=== PATIENT | male | born 1980 | race Caucasian/White ===

== ENCOUNTER 2016-08-02 04:38 | Emergency (ER) | payer SELFPAY ==
--- NOTE | 2016-08-02 06:12 | ED ORDER SUMMARY ---
..... Patient: OLGA MALDONADO OrderSheet [facility] VisitID: [id number] [place] [address] 36y, M Registration Date/Time: 08/02/2016 ORDER SHEET Weight: 104.3 kg (stated) Allergies: No Known Drug Allergy GENERAL ORDERS: CBC w Diff Urgent (04:44 08/02/2016 PHarchinson DO) (Ack 4:46 [facility] Paralegal) (5:02 JQuivey R.N.) CMP Urgent (04:44 [facility]/02/2016 [facility] (Ack 4:46 [facility] Paralegal) (5:02 JQuivey R.N.) UA-Culture if indicated Urgent (04:44 08/02/2016 [facility] (Ack 4:46 [facility] Paralegal) (5:02 JQuivey R.N.) Amylase Urgent (04:44 08/02/2016 [facility] (Ack 4:46 [facility] Lit[facility] Paralegal) (5:02 JQuivey R.N.) Lipase Urgent (04:44 08/02/2016 PHarchinson DO) (Ack 4:46 [facility] Paralegal) (5:02 JQuivey R.N.) PT with INR Urgent (04:44 08/02/2016 [facility] (Ack 4:46 [facility] Paralegal) (5:02 JQuivey R.N.) NPO (04:44 08/02/2016 [facility] (Ack 4:46 [facility] Paralegal) (5:02 JQuivey R.N.) CT Abd/Pel w Cont (No) (N/A) Urgent (04:56 08/02/2016 [facility]) (Ack 4:57 [facility] Paralegal) (5:16 RFay) Urine Drug Screen Urgent (04:58 08/02/2016 [facility]) (Ack 5:09 [facility] Paralegal) (5:10 [facility] Lit[facility] Paralegal) MEDICATION ORDERS: IV FLUIDS: IV NS : initial bolus 1000 mL (1000 mL/hr), then 250 mL/hr for X4 (NOW) (04:44 08/02/2016 [facility]) (Ack 4:49 RCollier R.N.) (4:56 RCollier R.N.) Zofran IV 4 mg (NOW) (04:44 08/02/2016 [facility]) (Ack 4:49 RCollier R.N.) (4:57 RCollier R.N.) Dilaudid IV 1 mg (NOW) (04:56 08/02/2016 [facility]) (Ack 4:57 RCollier R.N.) (5:04 RCollier R.N.) Protonix IVP 40mg 40 mg (Mix in NS 10ml over 2min) (04:56 08/02/2016 [facility]) (Ack 4:57 RCollier R.N.) (5:05 RCollier R.N.) ORDER SHEET NOTES: [Electronically signed by Rdaha Barillas R.N. (06:26 08/02/2016)] [Electronically signed by Korey White DO (06:27 08/02/2016)] [Electronically locked/signed by Radha Barillas R.N. (06:08/02/2016)]
--- NOTE | 2016-08-02 06:12 | ED NURSING NOTES ---
Clinical Report - Nurses [facility] [address] [place] [address] 08/02/2016 4:41 Patient: OLGA MALDONADO TRIAGE Triage time 04:44. Acuity: LEVEL 4. Chief Complaint: (burning at base of rib cage and in belly button). --04:48 Radha Barillas R.N. 04:44 08/02/16. BP: 135/89. HR: 79. RR: 15. O2 saturation: 96% on room air. Temp: 98.4 F (oral). Fox-Hannah pain scale: 4/10. --04:48 Radha Barillas R.N. Weight: 104.3 kg stated. Height/Length: 73 inches Per Patient. BMI: 30.3. --04:47 Radha Barillas R.N. Medications None. --04:47 Radha Barillas R.N. Allergies No Known Drug Allergy. --04:47 Radha Barillas R.N. History Arrived by private vehicle. Historian: patient. Primary physician (none). Onset. (about one month ago). 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 PAST MEDICAL HX: Immunizations not up to date. SOCIAL HX: Heavy tobacco smoker (cigarette)- less than 1 pack per day. Regular alcohol use. History of occasional drug use: marijuana. --04:48 Radha Barillas R.N. PROBLEMS: no known problems. ADDITIONAL SURGERIES: no known surgeries. Interventions ID band on patient. To treatment room. --04:48 Radha Barillas R.N. PHYSICAL ASSESSMENT Ambulatory to room. Patient gowned. GENERAL / NEURO / PSYCH: Alert. Oriented X 4. Appears in no acute distress. HEENT: Mucous membranes are pink. RESPIRATORY: Respirations not labored. CVS: Capillary refill less than 2 seconds. SKIN: Skin is warm and dry. --04:48 Radha Barillas R.N. NURSING PROGRESS NOTES Head of bed elevated. Two patient identifiers checked. Call light placed in reach. Side rails up x 1. Bed placed in lowest position. Brakes of bed on. --04:49 Radha Barillas R.N. Patient ready for evaluation- chart flagged. --04:49 Radha Barillas R.N. 04:54 08/02/2016 Site #1 started via IV in the right forearm with an 20g angiocath, with aseptic technique and good blood return; one attempt. Blood drawn: rainbow set. Labeled in the presence of the patient and sent to the lab (started by David Escobar RN). --04:56 Radha Barillas R.N. 04:54 Patient informed of his NPO status. --04:58 David Frazier R.N. 05:01 08/02/2016 Dilaudid (HYDROmorphone HCl PF) IVP 1 mg given over 1 minute(s) via site #1. Allergies verified, confirmed 5 rights and sedative warning given to the patient. IV patency established. IV site checked: no pain, redness, or swelling. IV flushed thoroughly pre- and post-medication administration. IVP given by RN. --05:04 Radha Barillas R.N. 05:02 08/02/2016 PROTONIX (Pantoprazole Sodium) IVP 40 mg given over 2 minute(s) via site #1. Allergies verified and confirmed 5 rights. IV patency established. IV site checked: no pain, redness, or swelling. IV flushed thoroughly pre- and post-medication administration. IVP given by RN. --05:05 Radha Barillas R.N. Patient ID band checked for patient name and birthdate: patient confirmed urine collected with return of yellow-colored clear urine; sample sent to lab. Specimen labeled in the presence of the patient. --05:05 Radha Barillas R.N. 06:11 08/02/16. BP: 122/79. HR: 75. RR: 15. O2 saturation: 95% on room air. Fox-Hannah pain scale: 2/10. --06:12 Radha Barillas R.N. Patient and family informed about plan of care. --06:12 Radha Barillas R.N. DISPOSITION / DISCHARGE 04:54 08/02/2016 Started bag #1 1000 mL IV Fluids IV NS (Saline); at 1000 mL/hr via site #1 via IV pump. Allergies verified and confirmed 5 rights. IV patency established. IV site checked: no pain, redness, or swelling. IV flushed thoroughly pre- and post-medication administration. --04:56 Radha Barillas R.N. 04:56 08/02/2016 Zofran (Ondansetron HCl) IVP 4 mg given over 30 second(s) via site #1. Allergies verified and confirmed 5 rights. IV patency established. IV site checked: no pain, redness, or swelling. IV flushed thoroughly pre- and post-medication administration. IVP given by RN. --04:57 Radha Barillas R.N. 06:11 08/02/16. BP: 122/79. HR: 75. RR: 15. O2 saturation: 95% on room air. Fox-Hannah pain scale: 2/10. --06:24 Radha Barillas R.N. Condition at departure: improved and stable. No learning barriers present. Discharge instructions provided and reviewed with the patient. Reviewed medication(s) side effects, precautions, dosing and course information. Prescription(s) given to the patient. Patient verbalized understanding. Written instructions provided in Amharic. The patient was discharged home and accompanied by mems process engineer. He left the Emergency Department ambulatory and via private vehicle. Pen And Pencil Repairer driving. --06:24 Radha Barillas R.N. 06:25 08/02/2016 Site #1 removed upon discharge. Catheter intact. Manual pressure and bandage applied. --06:25 Radha Barillas R.N. 06:25 08/02/2016 IV Fluids IV NS Discontinued: bag #1 completed. Total amount infused: 1000 mL. IV patency established. IV site checked: no pain, redness, or swelling. IV flushed thoroughly. --06:25 Radha Barillas R.N. Locked/Released at 08/02/2016 6:26 by Radha Barillas R.N.
--- NOTE | 2016-08-02 06:12 | ED CLINICAL REPORT ---
Clinical Report - Physicians/Mid Levels [facility] [address] [place] [address] 08/02/2016 4:41 Patient: OLGA MALDONADO Time Seen: 04:43. Arrived- By private vehicle. Historian- patient. HISTORY OF PRESENT ILLNESS Chief Complaint: ABDOMINAL PAIN. This started today about 1 month ago, worse tonight and is still present. It was gradual in onset and has been waxing/waning. It is described as "pain" and burning. No radiation. It is described as generalized in location and located in the periumbilical area and in the left upper quadrant and the left flank. At its maximum, severity described as moderate. When seen in the E.D., severity described as moderate. Modifying factors- worsened by movement. Relieved by rest. No loss of appetite, vomiting or diarrhea. Similar symptoms previously: Recent medical care: Not recently seen/assessed. REVIEW OF SYSTEMS The patient has had constipation and bloody stools. No hematemesis, difficulty with urination, pain with urination, urinary frequency or fever. No headache, sore throat, chest pain, difficulty breathing or cough. No back pain. All systems otherwise negative, except as recorded above. PAST HISTORY See nurses notes. Abscess with I&D. No history of gallstones, bowel obstruction, hypertension, hyperlipidemia or diabetes mellitus. Has not had urinary calculi. Problems: no known problems. Surgeries: No history of previous surgery. Additional Surgeries: no known surgeries. Medications: None. Allergies: No Known Drug Allergy. SOCIAL HISTORY Smoker- current status unknown. Regular alcohol use. History of drug use: marijuana. ADDITIONAL NOTES The nursing notes have been reviewed. PHYSICAL EXAM Vital Signs: 08/02/2016 04:44 BP: 135/89. HR: 79. RR: 15. O2 saturation: 96%. Temp: 98.4 F. Fox-Hannah pain scale: 4/10. Appearance: Alert. Oriented X3. Anxious. Patient in mild distress. Eyes: Eyes normal inspection. No scleral icterus or pale conjunctivae. ENT: Pharynx normal. No pharyngeal erythema or tonsillar exudate. The mucous membranes are not dry. Neck: Normal inspection. Neck supple. CVS: Normal heart rate and rhythm. Heart sounds normal. Pulses normal. Respiratory: No respiratory distress. Breath sounds normal. Abdomen: Soft. Mild tenderness in the upper abdomen, epigastric area, periumbilical area and left side of the abdomen. No rebound tenderness or guarding. (Small, easily reducible umbilical hernia). Back: Normal inspection. Skin: Skin warm and dry. Normal skin color. No rash. Normal skin turgor. (subcutaneous mass c/w lipoma left anterolateral chest wall). Extremities: Extremities exhibit normal ROM. No lower extremity edema. Neuro: Oriented X 3. No motor deficit. LABS, X-RAYS, AND EKG Abdominal CT: Mild hepatomegally / fatty infiltration. Normal appendix. No acute intra-abdominal / intrapelvic process is identified. Study type: abdomen and pelvis. Abdominal CT performed with IV contrast. The study was independently viewed by me, interpreted by the radiologist and discussed with the radiologist. Laboratory Tests: UA-Culture if indicated: (GUIDO: 08/02/2016 04:52) ( [facility] 05[facility]07) Final results Test Result Flag Units (Reference) URINE COLOR YELLOW URINE APPEARANCE CLEAR URINE GLUCOSE NEGATIVE (NEGATIVE) URINE BILIRUBIN NEGATIVE (NEGATIVE) URINE KETONE NEGATIVE (NEGATIVE) URINE SPECIFIC GRAVITY >= 1.030 (1.010-1.030) URINE PH 5.5 (5.0-8.0) URINE PROTEIN NEGATIVE (NEGATIVE) URINE UROBILINOGEN 0.2 EU/dL (0.2-1.0) URINE NITRITE NEGATIVE (NEGATIVE) URINE BLOOD NEGATIVE (NEGATIVE) URINE LEUK ESTERASE NEGATIVE (NEGATIVE) URINE RBC 0-1 rbc/hpf (0-1) URINE WBC 0-1 wbc/hpf (0-1) URINE EPITHELIAL CELLS 0-1 EPI/hpf (0-5) URINE BACTERIA NONE SEEN (NONE SEEN) URINE COMMENT CULT NOT INDICATED URINE CULTURES ARE SET-UP BASED ON THE FOLLOWING CRITERIA:POSITIVE NITRITEPOSITIVE LEUKOCYTE ESTERASEGREATER THAN 10 WHITE BLOOD CELLSMODERATE (2+) OR GREATER BACTERIA CBC w Diff: (GUIDO: 08/02/2016 04:52) ( [facility] 08/02/2016 05:05) Final results Test Result Flag Units (Reference) WHITE BLOOD COUNT 8.6 K/uL (4.5-11.5) RED BLOOD COUNT 4.99 M/uL (4.50-5.90) HEMOGLOBIN 15.6 gm/dL (13.5-17.5) HEMATOCRIT 46.4 % (41.0-53.0) MEAN CELL VOLUME 93 fL (80-100) MEAN CORPUSCULAR HGB 31 pg (26-34) MEAN CORPUSCULAR HGB CONC 34 g/dL (31-37) RED CELL DISTRIBUTION WIDTH 13.3 % (11.6-14.8) PLATELET COUNT 201 K/uL (150-400) NEUTROPHIL % 46.2 L % (50-75) LYMPH % 41.2 H % (25-40) MONO % 8.1 % (3-14) EOSINOPHIL % 4.0 % (0-4) BASOPHIL % 0.5 % (0-2) PT with INR: (GUIDO: 08/02/2016 04:52) ( [facility]sg[facility]cv[facility] 08/02/2016 05:10) Final results Test Result Flag Units (Reference) INR 0.9 (0.8-1.2) Low Intensity Therapy: INR 1.5-2.0 PT range 18.5-23.1Mod.Intensity Therapy: INR 2.0-3.0 PT range 23.1-31.5High Intensity Therapy: INR 2.5-3.5 PT range 27.4-35.5High Intensity Therapy 2: INR 3.0-4.0 PT range 31.5-39.3 Urine Drug Screen: (GUIDO: 08/02/2016 04:52) ( MsgRcvd 08/02/2016 05:16) Final results Test Result Flag Units (Reference) AMPHETAMINE/METHAMPHETAMINE NEGATIVE (NEGATIVE) BARBITURATE NEGATIVE (NEGATIVE) BENZODIAZEPINE NEGATIVE (NEGATIVE) CANNABINOID POSITIVE H (NEGATIVE) COCAINE NEGATIVE (NEGATIVE) ECSTASY NEGATIVE (NEGATIVE) METHADONE NEGATIVE (NEGATIVE) OPIATE NEGATIVE (NEGATIVE) The urine drug screen is a qualitative screening test fordrug overdose and abuse. All screen results should beconsidered as presumptive.Drugs screened for are as follows:BenzodiazepinesCocaineAmphetamines/MetamphetaminesTHC (Tetrahydrocannabinol)OpiatesBarbituratesEcstasyMethadonePositive results are unconfirmed. For confirmation, notifythe lab for the specimen to be sent to the reference lab.All confirmations must be performed by a differentmethodology.The ingestion of natural herbal and plant productscontaining Ephedra/Ephedra metabolites can produce in urineone or more substances capable of cross reacting withamphetamine/methamphetamine immunoassays. These testsprovide a preliminary result only. A more specificalternative chemical method must be used to obtain aconfirmed analytical result. CMP: (GUIDO: 08/02/2016 04:52) ( MsgRcvd 08/02/2016 05:16) Final results Test Result Flag Units (Reference) GLUCOSE 104 mg/dL (70-110) BUN 15 mg/dL (7-18) CREATININE 0.9 mg/dL (0.6-1.3) Estimated GFR >60 mL/min Estimated GFR- >60 mL/min Note: Persistent reduction over 3 months in eGFR<60 mL/min/1.73 m2 defines CKD. Patients with eGFR values>=60 mL/min/1.73 m2 may also have CKD if evidence ofpersistent proteinuria. Additional information may be foundat www.kidney.org. SODIUM 141 mmol/L (136-145) POTASSIUM 4.3 mmol/L (3.5-5.1) CHLORIDE 105 mmol/L (98-107) CARBON DIOXIDE 30 mmol/L (21-32) CALCIUM 9.0 mg/dL (8.5-10.1) TOTAL PROTEIN 7.8 g/dL (6.4-8.2) ALBUMIN 4.1 g/dL (3.3-5.0) BILIRUBIN, TOTAL 0.4 mg/dL (0.0-1.0) ALKALINE PHOSPHATASE 75 U/L (46-116) AST (SGOT) 22 U/L (15-37) ALT (SGPT) 51 U/L (12-78) LIPASE 253 U/L (73-393) AMYLASE 37 U/L (25-115) . Pulse Oximetry: 08/02/2016 04:44 O2 saturation: 96%. (FIO2 - room air). Interpretation: normal. PROGRESS AND PROCEDURES Course of Care: Normal Saline 1 liter IVPB given. Zofran 4 mg IVP given. Protonix 40 mg IVP given. Dilaudid 1 mg IVP given. 06:06 08/02/16. Patient is stable. Physical exam findings are improved. Symptoms much better. Normal labs and CT now. Benign abdominal exam. Pt will need close out pt follow up. Pt has appt with "insurance licensing supervisor" - individual who will assist him with obtaining insurance and pcp - later today. I have encouraged him to follow up closely with the surgeon for further evaluation of the intermittent rectal bleeding. Patient/family counseled. Old ED records reviewed. (ILYA avendaño [place] [facility] [place] Ronen lombardo - pt states wait was too long so he did not wait to be seen). Disposition: Discharged. Condition: stable and improved. CLINICAL IMPRESSION Acute generalized, epigastric, left upper quadrant and periumbilical abdominal pain of unknown cause. Minor GI bleed with hematochezia. Chronic substance abuse- tobacco (cigarettes), marijuana with anxiety. Reducible and recurrent umbilical hernia. No obstruction or gangrene. Possible constipation INSTRUCTIONS Rest. Do not work for two days. Drink plenty of fluids. No alcohol. Avoid alcohol and NSAIDS. Examples of NSAIDS include aspirin, ibuprofen (Advil) and naproxen (Aleve). Avoid fatty, fried/greasy, lactose-containing (such as milk, cheese and ice cream), salty and spicy foods. Do not smoke. Seek medical help to quit smoking. (MANDATORY RECHECK IN 12 - 24 HOURS UNLESS BETTER). Warnings: Further evaluation is necessary in order to recheck abnormal lab, obtain test results, conduct further tests and assess the possibility of serious illness (You will likely require a colonoscopy (or equivalent)). It is very important to follow up with a physician. SEDATIVE MEDICATION: You were given sedative medication during your visit. Do not drive or operate dangerous machinery. CONTROLLED SUBSTANCE WARNINGS. GENERAL WARNINGS: Return or contact your physician immediately if your condition worsens or changes unexpectedly, if not improving as expected, or if other problems arise. Prescription Medications: Hydrocodone/APAP 5mg / 325mg: take 1-2 orally every 8 hours as needed for pain. Dispense ten (10). No refill. Prilosec 20 mg capsules: Take 1 capsule orally once daily. Dispense fifteen (15). No refills. Substitution is permissible. Phenergan suppositories 25 mg: Insert 1 rectally every 4 to 6 hours as needed for nausea or vomiting. Dispense ten (10). No refills. Substitution is permissible. OTC Medications: Take acetaminophen (Tylenol, Datril, etc.) according to label instructions. Available over the counter. Follow-up: Follow up with your doctor tomorrow. Follow-up with: Korey Ash MD, General Surgeon, , [facility], [address] [place] [address] Follow up in about two days. Call for the next available appointment. (Electronically signed by Korey White DO 08/02/2016 6:27)
--- NOTE | 2016-08-02 06:12 | ED NURSING NOTES ---
Clinical Report - Nurses [facility] [address] [place] [address] 08/02/2016 4:41 Patient: OLGA MALDONADO TRIAGE Triage time 04:44. Acuity: LEVEL 4. Chief Complaint: (burning at base of rib cage and in belly button). --04:48 Radha Barillas R.N. 04:44 08/02/16. BP: 135/89. HR: 79. RR: 15. O2 saturation: 96% on room air. Temp: 98.4 F (oral). Fox-Hannah pain scale: 4/10. --04:48 Radha Barillas R.N. Weight: 104.3 kg stated. Height/Length: 73 inches Per Patient. BMI: 30.3. --04:47 Radha Barillas R.N. Medications None. --04:47 Radha Barillas R.N. Allergies No Known Drug Allergy. --04:47 Radha Barillas R.N. History Arrived by private vehicle. Historian: patient. Primary physician (none). Onset. (about one month ago). 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 PAST MEDICAL HX: Immunizations not up to date. SOCIAL HX: Heavy tobacco smoker (cigarette)- less than 1 pack per day. Regular alcohol use. History of occasional drug use: marijuana. --04:48 Radha Barillas R.N. PROBLEMS: no known problems. ADDITIONAL SURGERIES: no known surgeries. Interventions ID band on patient. To treatment room. --04:48 Radha Barillas R.N. PHYSICAL ASSESSMENT Ambulatory to room. Patient gowned. GENERAL / NEURO / PSYCH: Alert. Oriented X 4. Appears in no acute distress. HEENT: Mucous membranes are pink. RESPIRATORY: Respirations not labored. CVS: Capillary refill less than 2 seconds. SKIN: Skin is warm and dry. --04:48 Radha Barillas R.N. NURSING PROGRESS NOTES Head of bed elevated. Two patient identifiers checked. Call light placed in reach. Side rails up x 1. Bed placed in lowest position. Brakes of bed on. --04:49 Radha Barillas R.N. Patient ready for evaluation- chart flagged. --04:49 Radha Barillas R.N. 04:54 08/02/2016 Site #1 started via IV in the right forearm with an 20g angiocath, with aseptic technique and good blood return; one attempt. Blood drawn: rainbow set. Labeled in the presence of the patient and sent to the lab (started by David Escobar RN). --04:56 Radha Barillas R.N. 04:54 Patient informed of his NPO status. --04:58 David Frazier R.N. 05:01 08/02/2016 Dilaudid (HYDROmorphone HCl PF) IVP 1 mg given over 1 minute(s) via site #1. Allergies verified, confirmed 5 rights and sedative warning given to the patient. IV patency established. IV site checked: no pain, redness, or swelling. IV flushed thoroughly pre- and post-medication administration. IVP given by RN. --05:04 Radha Barillas R.N. 05:02 08/02/2016 PROTONIX (Pantoprazole Sodium) IVP 40 mg given over 2 minute(s) via site #1. Allergies verified and confirmed 5 rights. IV patency established. IV site checked: no pain, redness, or swelling. IV flushed thoroughly pre- and post-medication administration. IVP given by RN. --05:05 Radha Barillas R.N. Patient ID band checked for patient name and birthdate: patient confirmed urine collected with return of yellow-colored clear urine; sample sent to lab. Specimen labeled in the presence of the patient. --05:05 Radha Barillas R.N. 06:11 08/02/16. BP: 122/79. HR: 75. RR: 15. O2 saturation: 95% on room air. Fox-Hannah pain scale: 2/10. --06:12 Radha Barillas R.N. Patient and family informed about plan of care. --06:12 Radha Barillas R.N. DISPOSITION / DISCHARGE 04:54 08/02/2016 Started bag #1 1000 mL IV Fluids IV NS (Saline); at 1000 mL/hr via site #1 via IV pump. Allergies verified and confirmed 5 rights. IV patency established. IV site checked: no pain, redness, or swelling. IV flushed thoroughly pre- and post-medication administration. --04:56 Radha Barillas R.N. 04:56 08/02/2016 Zofran (Ondansetron HCl) IVP 4 mg given over 30 second(s) via site #1. Allergies verified and confirmed 5 rights. IV patency established. IV site checked: no pain, redness, or swelling. IV flushed thoroughly pre- and post-medication administration. IVP given by RN. --04:57 Radha Barillas R.N. 06:11 08/02/16. BP: 122/79. HR: 75. RR: 15. O2 saturation: 95% on room air. Fox-Hannah pain scale: 2/10. --06:24 Radha Barillas R.N. Condition at departure: improved and stable. No learning barriers present. Discharge instructions provided and reviewed with the patient. Reviewed medication(s) side effects, precautions, dosing and course information. Prescription(s) given to the patient. Patient verbalized understanding. Written instructions provided in Luxembourgish. The patient was discharged home and accompanied by sighter. He left the Emergency Department ambulatory and via private vehicle. Supervisor Film Processing driving. --06:24 Radha Barillas R.N. 06:25 08/02/2016 Site #1 removed upon discharge. Catheter intact. Manual pressure and bandage applied. --06:25 Radha Barillas R.N. 06:25 08/02/2016 IV Fluids IV NS Discontinued: bag #1 completed. Total amount infused: 1000 mL. IV patency established. IV site checked: no pain, redness, or swelling. IV flushed thoroughly. --06:25 Radha Barillas R.N. Locked/Released at 08/02/2016 6:26 by Radha Barillas R.N.
--- NOTE | 2016-08-02 06:12 | ED ORDER SUMMARY ---
..... Patient: OLGA MALDONADO OrderSheet [facility] VisitID: [id number] [place] [address] 36y, M Registration Date/Time: 08/02/2016 ORDER SHEET Weight: 104.3 kg (stated) Allergies: No Known Drug Allergy GENERAL ORDERS: CBC w Diff Urgent (04:44 08/02/2016 PHmd[facility]inson DO) (Ack 4:46 [facility]) (5:02 JQuivey R.N.) CMP Urgent (04:44 [facility]/02/2016 [facility] (Ack 4:46 [facility]) (5:02 JQuivey R.N.) UA-Culture if indicated Urgent (04:44 08/02/2016 [facility] (Ack 4:46 [facility]) (5:02 JQuivey R.N.) Amylase Urgent (04:44 08/02/2016 [facility] (Ack 4:46 [facility]) (5:02 JQuivey R.N.) Lipase Urgent (04:44 08/02/2016 PHmdchinson DO) (Ack 4:46 [facility]) (5:02 JQuivey R.N.) PT with INR Urgent (04:44 08/02/2016 [facility] (Ack 4:46 [facility]) (5:02 JQuivey R.N.) NPO (04:44 08/02/2016 [facility] (Ack 4:46 [facility]) (5:02 JQuivey R.N.) CT Abd/Pel w Cont (No) (N/A) Urgent (04:56 08/02/2016 [facility]) (Ack 4:57 [facility]) (5:16 RFay) Urine Drug Screen Urgent (04:58 08/02/2016 [facility]) (Ack 5:09 [facility]) (5:10 [facility]) MEDICATION ORDERS: IV FLUIDS: IV NS : initial bolus 1000 mL (1000 mL/hr), then 250 mL/hr for X4 (NOW) (04:44 08/02/2016 [facility]) (Ack 4:49 RCollier R.N.) (4:56 RCollier R.N.) Zofran IV 4 mg (NOW) (04:44 08/02/2016 [facility]) (Ack 4:49 RCollier R.N.) (4:57 RCollier R.N.) Dilaudid IV 1 mg (NOW) (04:56 08/02/2016 [facility]) (Ack 4:57 RCollier R.N.) (5:04 RCollier R.N.) Protonix IVP 40mg 40 mg (Mix in NS 10ml over 2min) (04:56 08/02/2016 [facility]) (Ack 4:57 RCollier R.N.) (5:05 RCollier R.N.) ORDER SHEET NOTES: [Electronically signed by Radha Barillas R.N. (06:26 08/02/2016)] [Electronically signed by Korey White DO (06:27 08/02/2016)] [Electronically locked/signed by Radha Barillas R.N. (06:08/02/2016)]
--- NOTE | 2016-08-02 06:12 | ED CLINICAL REPORT ---
Clinical Report - Physicians/Mid Levels [facility] [address] [place] [address] 08/02/2016 4:41 Patient: OLGA MALDONADO Time Seen: 04:43. Arrived- By private vehicle. Historian- patient. HISTORY OF PRESENT ILLNESS Chief Complaint: ABDOMINAL PAIN. This started today about 1 month ago, worse tonight and is still present. It was gradual in onset and has been waxing/waning. It is described as "pain" and burning. No radiation. It is described as generalized in location and located in the periumbilical area and in the left upper quadrant and the left flank. At its maximum, severity described as moderate. When seen in the E.D., severity described as moderate. Modifying factors- worsened by movement. Relieved by rest. No loss of appetite, vomiting or diarrhea. Similar symptoms previously: Recent medical care: Not recently seen/assessed. REVIEW OF SYSTEMS The patient has had constipation and bloody stools. No hematemesis, difficulty with urination, pain with urination, urinary frequency or fever. No headache, sore throat, chest pain, difficulty breathing or cough. No back pain. All systems otherwise negative, except as recorded above. PAST HISTORY See nurses notes. Abscess with I&D. No history of gallstones, bowel obstruction, hypertension, hyperlipidemia or diabetes mellitus. Has not had urinary calculi. Problems: no known problems. Surgeries: No history of previous surgery. Additional Surgeries: no known surgeries. Medications: None. Allergies: No Known Drug Allergy. SOCIAL HISTORY Smoker- current status unknown. Regular alcohol use. History of drug use: marijuana. ADDITIONAL NOTES The nursing notes have been reviewed. PHYSICAL EXAM Vital Signs: 08/02/2016 04:44 BP: 135/89. HR: 79. RR: 15. O2 saturation: 96%. Temp: 98.4 F. Fox-Hannah pain scale: 4/10. Appearance: Alert. Oriented X3. Anxious. Patient in mild distress. Eyes: Eyes normal inspection. No scleral icterus or pale conjunctivae. ENT: Pharynx normal. No pharyngeal erythema or tonsillar exudate. The mucous membranes are not dry. Neck: Normal inspection. Neck supple. CVS: Normal heart rate and rhythm. Heart sounds normal. Pulses normal. Respiratory: No respiratory distress. Breath sounds normal. Abdomen: Soft. Mild tenderness in the upper abdomen, epigastric area, periumbilical area and left side of the abdomen. No rebound tenderness or guarding. (Small, easily reducible umbilical hernia). Back: Normal inspection. Skin: Skin warm and dry. Normal skin color. No rash. Normal skin turgor. (subcutaneous mass c/w lipoma left anterolateral chest wall). Extremities: Extremities exhibit normal ROM. No lower extremity edema. Neuro: Oriented X 3. No motor deficit. LABS, X-RAYS, AND EKG Abdominal CT: Mild hepatomegally / fatty infiltration. Normal appendix. No acute intra-abdominal / intrapelvic process is identified. Study type: abdomen and pelvis. Abdominal CT performed with IV contrast. The study was independently viewed by me, interpreted by the radiologist and discussed with the radiologist. Laboratory Tests: UA-Culture if indicated: (GUIDO: 08/02/2016 04:52) ( [facility] 08/02/2016 05:07) Final results Test Result Flag Units (Reference) URINE COLOR YELLOW URINE APPEARANCE CLEAR URINE GLUCOSE NEGATIVE (NEGATIVE) URINE BILIRUBIN NEGATIVE (NEGATIVE) URINE KETONE NEGATIVE (NEGATIVE) URINE SPECIFIC GRAVITY >= 1.030 (1.010-1.030) URINE PH 5.5 (5.0-8.0) URINE PROTEIN NEGATIVE (NEGATIVE) URINE UROBILINOGEN 0.2 EU/dL (0.2-1.0) URINE NITRITE NEGATIVE (NEGATIVE) URINE BLOOD NEGATIVE (NEGATIVE) URINE LEUK ESTERASE NEGATIVE (NEGATIVE) URINE RBC 0-1 rbc/hpf (0-1) URINE WBC 0-1 wbc/hpf (0-1) URINE EPITHELIAL CELLS 0-1 EPI/hpf (0-5) URINE BACTERIA NONE SEEN (NONE SEEN) URINE COMMENT CULT NOT INDICATED URINE CULTURES ARE SET-UP BASED ON THE FOLLOWING CRITERIA:POSITIVE NITRITEPOSITIVE LEUKOCYTE ESTERASEGREATER THAN 10 WHITE BLOOD CELLSMODERATE (2+) OR GREATER BACTERIA CBC w Diff: (GUIDO: 08/02/2016 04:52) ( [facility] 08/02/2016 05:05) Final results Test Result Flag Units (Reference) WHITE BLOOD COUNT 8.6 K/uL (4.5-11.5) RED BLOOD COUNT 4.99 M/uL (4.50-5.90) HEMOGLOBIN 15.6 gm/dL (13.5-17.5) HEMATOCRIT 46.4 % (41.0-53.0) MEAN CELL VOLUME 93 fL (80-100) MEAN CORPUSCULAR HGB 31 pg (26-34) MEAN CORPUSCULAR HGB CONC 34 g/dL (31-37) RED CELL DISTRIBUTION WIDTH 13.3 % (11.6-14.8) PLATELET COUNT 201 K/uL (150-400) NEUTROPHIL % 46.2 L % (50-75) LYMPH % 41.2 H % (25-40) MONO % 8.1 % (3-14) EOSINOPHIL % 4.0 % (0-4) BASOPHIL % 0.5 % (0-2) PT with INR: (GUIDO: 08/02/2016 04:52) ( MsgRcvd 08/02/2016 05:10) Final results Test Result Flag Units (Reference) INR 0.9 (0.8-1.2) Low Intensity Therapy: INR 1.5-2.0 PT range 18.5-23.1Mod.Intensity Therapy: INR 2.0-3.0 PT range 23.1-31.5High Intensity Therapy: INR 2.5-3.5 PT range 27.4-35.5High Intensity Therapy 2: INR 3.0-4.0 PT range 31.5-39.3 Urine Drug Screen: (GUIDO: 08/02/2016 04:52) ( MsgRcvd 08/02/2016 05:16) Final results Test Result Flag Units (Reference) AMPHETAMINE/METHAMPHETAMINE NEGATIVE (NEGATIVE) BARBITURATE NEGATIVE (NEGATIVE) BENZODIAZEPINE NEGATIVE (NEGATIVE) CANNABINOID POSITIVE H (NEGATIVE) COCAINE NEGATIVE (NEGATIVE) ECSTASY NEGATIVE (NEGATIVE) METHADONE NEGATIVE (NEGATIVE) OPIATE NEGATIVE (NEGATIVE) The urine drug screen is a qualitative screening test fordrug overdose and abuse. All screen results should beconsidered as presumptive.Drugs screened for are as follows:BenzodiazepinesCocaineAmphetamines/MetamphetaminesTHC (Tetrahydrocannabinol)OpiatesBarbituratesEcstasyMethadonePositive results are unconfirmed. For confirmation, notifythe lab for the specimen to be sent to the reference lab.All confirmations must be performed by a differentmethodology.The ingestion of natural herbal and plant productscontaining Ephedra/Ephedra metabolites can produce in urineone or more substances capable of cross reacting withamphetamine/methamphetamine immunoassays. These testsprovide a preliminary result only. A more specificalternative chemical method must be used to obtain aconfirmed analytical result. CMP: (GUIDO: 08/02/2016 04:52) ( MsgRcvd 08/02/2016 05:16) Final results Test Result Flag Units (Reference) GLUCOSE 104 mg/dL (70-110) BUN 15 mg/dL (7-18) CREATININE 0.9 mg/dL (0.6-1.3) Estimated GFR >60 mL/min Estimated GFR- >60 mL/min Note: Persistent reduction over 3 months in eGFR<60 mL/min/1.73 m2 defines CKD. Patients with eGFR values>=60 mL/min/1.73 m2 may also have CKD if evidence ofpersistent proteinuria. Additional information may be foundat www.kidney.org. SODIUM 141 mmol/L (136-145) POTASSIUM 4.3 mmol/L (3.5-5.1) CHLORIDE 105 mmol/L (98-107) CARBON DIOXIDE 30 mmol/L (21-32) CALCIUM 9.0 mg/dL (8.5-10.1) TOTAL PROTEIN 7.8 g/dL (6.4-8.2) ALBUMIN 4.1 g/dL (3.3-5.0) BILIRUBIN, TOTAL 0.4 mg/dL (0.0-1.0) ALKALINE PHOSPHATASE 75 U/L (46-116) AST (SGOT) 22 U/L (15-37) ALT (SGPT) 51 U/L (12-78) LIPASE 253 U/L (73-393) AMYLASE 37 U/L (25-115) . Pulse Oximetry: 08/02/2016 04:44 O2 saturation: 96%. (FIO2 - room air). Interpretation: normal. PROGRESS AND PROCEDURES Course of Care: Normal Saline 1 liter IVPB given. Zofran 4 mg IVP given. Protonix 40 mg IVP given. Dilaudid 1 mg IVP given. 06:06 08/02/16. Patient is stable. Physical exam findings are improved. Symptoms much better. Normal labs and CT now. Benign abdominal exam. Pt will need close out pt follow up. Pt has appt with "finance insurance manager" - individual who will assist him with obtaining insurance and pcp - later today. I have encouraged him to follow up closely with the surgeon for further evaluation of the intermittent rectal bleeding. Patient/family counseled. Old ED records reviewed. (ILYA avendaño pt was seen at [facility] and Ronen lombardo - pt states wait was too long so he did not wait to be seen). Disposition: Discharged. Condition: stable and improved. CLINICAL IMPRESSION Acute generalized, epigastric, left upper quadrant and periumbilical abdominal pain of unknown cause. Minor GI bleed with hematochezia. Chronic substance abuse- tobacco (cigarettes), marijuana with anxiety. Reducible and recurrent umbilical hernia. No obstruction or gangrene. Possible constipation INSTRUCTIONS Rest. Do not work for two days. Drink plenty of fluids. No alcohol. Avoid alcohol and NSAIDS. Examples of NSAIDS include aspirin, ibuprofen (Advil) and naproxen (Aleve). Avoid fatty, fried/greasy, lactose-containing (such as milk, cheese and ice cream), salty and spicy foods. Do not smoke. Seek medical help to quit smoking. (MANDATORY RECHECK IN 12 - 24 HOURS UNLESS BETTER). Warnings: Further evaluation is necessary in order to recheck abnormal lab, obtain test results, conduct further tests and assess the possibility of serious illness (You will likely require a colonoscopy (or equivalent)). It is very important to follow up with a physician. SEDATIVE MEDICATION: You were given sedative medication during your visit. Do not drive or operate dangerous machinery. CONTROLLED SUBSTANCE WARNINGS. GENERAL WARNINGS: Return or contact your physician immediately if your condition worsens or changes unexpectedly, if not improving as expected, or if other problems arise. Prescription Medications: Hydrocodone/APAP 5mg / 325mg: take 1-2 orally every 8 hours as needed for pain. Dispense ten (10). No refill. Prilosec 20 mg capsules: Take 1 capsule orally once daily. Dispense fifteen (15). No refills. Substitution is permissible. Phenergan suppositories 25 mg: Insert 1 rectally every 4 to 6 hours as needed for nausea or vomiting. Dispense ten (10). No refills. Substitution is permissible. OTC Medications: Take acetaminophen (Tylenol, Datril, etc.) according to label instructions. Available over the counter. Follow-up: Follow up with your doctor tomorrow. Follow-up with: Korey Ash MD, General Surgeon, , [facility], [address] [place] [address] Follow up in about two days. Call for the next available appointment. (Electronically signed by Korey White DO 08/02/2016 6:27)
--- NOTE | 2016-08-02 06:28 | ED MED RECONCILIATION SUMMARY ---
Patient: OLGA MALDONADO Medication Reconciliation Report [facility] VisitID: [id number] [place] [address] 36y, M Registration Date/Time: 08/02/2016 Weight: 104.3 kg Height/Length: 73 in. BMI: 30.3 ALLERGIES: No Known Drug Allergy The patient's Home Medications are listed below: NONE. The source(s) of the original Home Medication information: Not obtained. The following Medications were given to the patient in the Emergency Department: IV NS IV Fluids bolus 0, then 1000 mL/hr, administered: 08/02/2016 4:54:00 AM Zofran [IVP] IVP 4 mg, administered: 08/02/2016 4:56:00 AM Dilaudid [IVP] IVP 1 mg, administered: 08/02/2016 5:01:00 AM PROTONIX [IVP] IVP 40 mg, administered: 08/02/2016 5:02:00 AM The following Medications were prescribed to the patient: Take acetaminophen (Tylenol, Datril, etc.) according to label instructions. Available over the counter. -- Korey White DO Hydrocodone/APAP 5mg / 325mg: take 1-2 orally every 8 hours as needed for pain. Dispense ten (10). No refill. -- Korey White DO Prilosec 20 mg capsules: Take 1 capsule orally once daily. Dispense fifteen (15). No refills. Substitution is permissible. -- Korey White DO Phenergan suppositories 25 mg: Insert 1 rectally every 4 to 6 hours as needed for nausea or vomiting. Dispense ten (10). No refills. Substitution is permissible. -- Korey White DO
--- NOTE | 2016-08-02 06:28 | ED MAR SUMMARY ---
..... Medication Administration Record [facility] [address] [place] [address] Patient: OLGA MALDONADO Visit ID: [id number] 36y, M Weight: 104.3 kg Height/Length: 73 in BMI: 30.3 ALLERGIES: No Known Drug Allergy Start 04:54 08/02/2016 Radha Barillas R.N., Stop 06:25 08/02/2016 Radha Barillas R.N. Medication Administered: IV NS (SALINE), Dose: IV Fluids, Rate: 1000 mL/hr, Dispensed: 1000 mL bag, Site: #1 right forearm. Medication Ordered: IV NS : initial bolus 1000 mL (1000 mL/hr), then 250 mL/hr for X4 (NOW). Given 04:56 08/02/2016 Radha Barillas R.N. Medication Administered: ZOFRAN [IVP] (ONDANSETRON HCL), Dose: 4 mg IVP over 30 second(s), Site: #1 right forearm. Medication Ordered: Zofran IV 4 mg (NOW). Given 05:01 08/02/2016 Radha Barillas R.N. Medication Administered: DILAUDID [IVP] (HYDROMORPHONE HCL PF), Dose: 1 mg IVP over 1 minute(s), Site: #1 right forearm. Medication Ordered: Dilaudid IV 1 mg (NOW). Given 05:02 08/02/2016 Radha Barillas R.N. Medication Administered: PROTONIX [IVP] (PANTOPRAZOLE SODIUM), Dose: 40 mg IVP over 2 minute(s), Site: #1 right forearm. Medication Ordered: Protonix IVP 40mg 40 mg (Mix in NS 10ml over 2min).
--- NOTE | 2016-08-02 06:28 | ED DISCHARGE INSTRUCTIONS ---
Patient: OLGA MALDONADO General Instructions [facility] VisitID: [id number] [place] [address] 36y, M Registration Date/Time: 08/02/2016 Acute generalized, epigastric, left upper quadrant and periumbilical abdominal pain of unknown cause. Minor GI bleed with hematochezia. Chronic substance abuse- tobacco (cigarettes), marijuana with anxiety. Reducible and recurrent umbilical hernia. No obstruction or gangrene. INSTRUCTIONS Rest. Do not work for two days. Drink plenty of fluids. No alcohol. Avoid alcohol and NSAIDS. Examples of NSAIDS include aspirin, ibuprofen (Advil) and naproxen (Aleve). Avoid fatty, fried/greasy, lactose-containing (such as milk, cheese and ice cream), salty and spicy foods. Do not smoke. Seek medical help to quit smoking. (MANDATORY RECHECK IN 12 - 24 HOURS UNLESS BETTER). Warnings: Further evaluation is necessary in order to recheck abnormal lab, obtain test results, conduct further tests and assess the possibility of serious illness (You will likely require a colonoscopy (or equivalent)). It is very important to follow up with a physician. SEDATIVE MEDICATION: You were given sedative medication during your visit. Do not drive or operate dangerous machinery. CONTROLLED SUBSTANCE WARNINGS. GENERAL WARNINGS: Return or contact your physician immediately if your condition worsens or changes unexpectedly, if not improving as expected, or if other problems arise. Prescription Medications: Hydrocodone/APAP 5mg / 325mg: take 1-2 orally every 8 hours as needed for pain. Dispense ten (10). No refill. Prilosec 20 mg capsules: Take 1 capsule orally once daily. Dispense fifteen (15). No refills. Substitution is permissible. Phenergan suppositories 25 mg: Insert 1 rectally every 4 to 6 hours as needed for nausea or vomiting. Dispense ten (10). No refills. Substitution is permissible. OTC Medications: Take acetaminophen (Tylenol, Datril, etc.) according to label instructions. Available over the counter. Follow-up: Follow up with your doctor tomorrow. Follow-up with: Korey Ash MD, General Surgeon, , [facility], [address] [place] [address] [address], [place], [id number] Follow up in about two days. Call for the next available appointment. ADDITIONAL INFORMATION Abdominal Pain,Uncertain Cause [Male] Based on your visit today, the exact cause of your abdominalpain is not clear. Your exam and tests do not indicate a dangerous cause at this time. However, the signs of a serious problem may take more time to appear. Although your evaluation was reassuring today, sometimes early in the course of many conditions, exam and lab tests can appear normal. Therefore, it is important for you to watch for any new symptoms or worsening of your condition. Causes It may not be obvious what caused your symptoms. Pay attention to things that do seem to make your symptoms worse or better and discuss this with your doctor when you follow up. Diagnosis The evaluation of abdominal pain in the emergency department may onlyrequire an exam by the doctor or it may include blood, urine or imaging studies, depending on many factors. Sometimes exams and tests can identify a cause but in many cases, a clear cause is not found. Further testing at follow up visits may help to suggest a clear diagnosis. Home Care Rest as much as possible until your next exam. Try to avoid any medications (unless otherwise directed by your doctor), foods, activities, or other factors that you may have contributed to your symptoms. Try to eat foods that you know that you have tolerated well in the past. Certain diets may be recommended for some conditions that cause abdominal pain. However, since the cause of your symptoms may not be clear, discuss your diet more with your primary care provider or specialist for further recommendations. Eating several small meals per day as opposed to 2 or 3 larger meals may help. Monitor closely for anything that may make your symptoms worse or better. Pay close attention to symptoms below that may indicate worsening of your condition. Follow Up and Precautions See your doctoras instructed or sooneror if your symptoms are not improving.In some cases, you may need more testing. When to Seek Medical Attention Contact your doctor or see medical attention ifany of the following occur: Pain is becoming worse You are unable to take your medications due to excessive vomiting Swelling of the abdomen Fever of 100.4F (38C) or higher, or as directed by your health care provider Blood in vomit or bowel movements (dark red or black color) Jaundice (yellow color of eyes and skin) New onset of weakness, dizziness or fainting New onset of chest, arm, back, neck or jaw pain Constipation (Adult) Constipation is bowel movements that are less frequent than usual. Stools often become very hard and difficult to pass. This may lead to abdominal pain and bloating. It may also cause painful bowel movements. Constipation may be due to a diet thats low in fiber. Some medications, especially pain medications, can also cause it. Constipation may be treated with enemas, suppositories, laxatives or stool softeners. Your doctor will advise you which will work best for you. Follow the advice below to help avoid this problem in the future. Home Care Medication: Take any medicines as directed. Some laxatives are safe only for occasional use. Others can be taken on a regular basis. Talk to your doctor or pharmacist if you have questions. General Care: Prescription pain medications can cause constipation. If you are prescribed pain medications, ask the doctor whether you should also take a stool softener. A diet high in fiber with plenty of fluids helps to maintain regular, soft bowel movements. The following foods are good sources of dietary fiber: Cereals and breads: Whole grain cereal with bran, oatmeal, rolled oats, whole grain breads Fruits: All fruits (fresh and dried), raisins, prunes, apricots, berries, figs Vegetables: Any fresh vegetables, especially peas, broccoli, brussels sprouts, winter squash, green beans, cauliflower, marques beans, carrots Other: Popcorn, brown rice Drink plenty of water when you increase the amount of fiber you eat. Follow Up with your doctor or return to this facility if symptoms do not improve in the next few days. You may require further tests or a referral to a specialist. Get Prompt Medical Attention if any of the following occur: Fever over 100.4F (38C) Failure to resume normal bowel movements Increasing abdominal or back pain Nausea or vomiting Abdominal swelling Blood in the stool Weakness, dizziness or fainting Unexpected vaginal bleeding Rectal Bleeding (Stable) Your exam today shows signs of blood in the stool. This is called rectal bleeding, because the blood passes through the rectum. However, the blood may not be coming from the rectum. Blood in the stool may be red or black in color. Red blood in the stool usually comes from the lower gastro-intestinal (GI) tract. This may be due to diverticulosis, polyps, colon inflammation or infection, anal fissure or hemorrhoids. In persons over 50 tumors and cancer of the intestinal tract may first show up as red blood in the stool. Upper GI bleeding causes the stool to turn black. This may occur with bleeding from the esophagus, stomach, duodenum or small intestine. Very small amounts of GI bleeding may not be visible and can only be discovered on a chemical test of the stool. You have not lost a large amount of blood and your condition appears stable at this time. It is very important to have a follow-up exam to determine the exact cause of your bleeding. Home Care: 1) You may resume normal activity as long as you feel well. 2) Avoid aspirin and anti-inflammatory drugs such as ibuprofen (Advil, Motrin) and naproxen (Aleve and Naprosyn). You may use acetaminophen (Tylenol) for pain. [ NOTE : If you have chronic liver disease, talk with your doctor before using acetaminophen.] 3) Avoid alcohol. Follow Up with your doctor or as advised by our medical staff. It is very important that you have further tests done to find the cause of your bleeding. Get Prompt Medical Attention if any of the following occur: -- Large amount of rectal bleeding (more than 1 cup of blood in 24 hours) -- Increasing abdominal pain -- Weakness, dizziness or fainting -- Vomiting blood (red or black color) Marijuana Abuse Marijuana is the most widely used illegal drug in the [place]. It is called by various names such as pot, weed, blunts, grass, reefer, ganja, hash, hashish. It is usually smoked but can be mixed with foods or brewed as a tea. It is sometimes sold with PCP (Sumit Dust) or amphetamine mixed in it. These drugs can cause other harmful side effects. Marijuana can cause the following effects: Changes in mood (stimulated, happy, drowsy, depressed, paranoid) Hallucinations Increased heart rate and blood pressure Increased appetite Time distortion, difficulty concentrating, impaired memory Lung damage (similar to cigarettes with chronic cough, wheezing, frequent colds and bronchitis) You can become psychologically dependent on marijuana. That means the craving to use the drug is emotional or psychological rather than due to physical withdrawal. Is Marijuana Running Your Life? Here are some of the signs: Relying on marijuana to feel good, forget problems, deal with stress or to relax Wanting to be alone most of the time or only with others who use drugs Losing interest in things that used to be important Changes in school or job performance or attendance Spending a lot of time thinking about how to get marijuana Stealing or selling your things so you can buy marijuana Unable to stop using even though you may want to quit Increasing anxiety, anger,or depression Sleeping too much, changes in eating habits (weight loss or gain) Needing to use more to get the same effect Home Care Once you have become addicted to any drug, quitting is hard to do. Most people find they can't quit without help. So, dont try to do this alone. Talk to someone you trust who can support you. Seek professional help. Avoid people and places where drugs are used. That only increases the temptation to use. Follow Up with your doctor or as advised by our staff. For more information or a referral to a treatment center in your area, contact: Your local mental health center or the National Alcohol and Substance Abuse Information Center (036)-747-6702 www.addictioncareMindset Studio.com National [place] on Alcoholism and Drug Dependence 465-111-NGSM www.ncadd.org Marijuana Anonymous 838-996-2045 www.marijuana-anonymous.org Get Prompt Medical Attention if any of the following occur: You feel extreme depression, fear, anxiety, or anger toward yourself or others You feel out of control You feel that you may try to harm yourself or another Hernia [Adult] A hernia is a bulge of the intestines or surrounding tissues through a tear in the muscle of the abdomen or groin. This may occur as a result of excessive coughing, heavy lifting or being overweight. It can also occur at the site of prior surgery. When a hernia first appears it may be painful due to stretching and tearing of the muscle fibers. When you lie down, the bulge should reduce in size or disappear completely. If it does not, and you are unable to flatten it with your hand, medical attention is needed at once. Home Care: Avoid heavy lifting and straining or any activities that cause pain in the hernia. Follow Up with your physician as directed by our staff. Get Prompt Medical Attention if any of the following occur: Increasing size of the hernia Increasing pain in the hernia A hernia that does not get smaller when you lie down Hardening of the hernia Abdominal swelling, fever or repeated vomiting Pain moves to the lower right abdomen (just below the waistline) or spreads to the back Russell Diet A bland diet is used for patients with an upset stomach. It consists of foods that are mild and easy to digest. It is better to eat small frequent meals rather than three large meals a day. BEVERAGES OK: Fruit juices, non-caffeinated teas and coffee, non-carbonated chappell AVOID: Carbonated beverage, caffeinated tea and coffee, all alcoholic beverages BREAD OK: Refined white, wheat or rye bread, rosa or soda crackers, Malu toast, plain rolls, bagels AVOID: Whole-grain bread CEREAL OK: Refined cereals: cooked or ready to eat AVOID: Whole grain cereals and granola, or those containing bran, seeds or nuts DESSERTS OK: Peanut butter and all others except those to "avoid" AVOID: Chocolate, cocoa, coconut, popcorn, nuts, seeds, jam, marmalade FRUITS OK: Canned, cooked, frozen or fresh fruits without seeds or tough skin AVOID: Olives, skin and seeds of fruit MEATS OK: All fresh or preserved meat, fish and fowl AVOID: Any that are prepared with those spices to "avoid" CHEESE & EGGS OK: Eggs, cottage cheese, cream cheese, other cheeses AVOID: All cheeses made with those spices to "avoid" POTATOES & PASTA OK: Potato, rice, macaroni, noodles, spaghetti AVOID: None SOUPS OK: All soups without heavy seasoning AVOID: Soups made with those spices to "avoid" VEGETABLES OK: Canned, cooked, fresh or frozen mildly flavored vegetables without seeds, skins or coarse fiber AVOID: Vegetables prepared with those spices to "avoid"; skin and seeds of vegetables and those with coarse fiber SPICES OK: Salt, lemon and qawalangin juice, vinegar, all extracts, eveline, cinnamon, thyme, mace, allspice, paprika AVOID: [place] powder, cloves, pepper, seed spices, garlic, gravy pickles, highly seasoned salad dressings How To Quit Smoking Smoking is one of the hardest habits to break. About half of all those who have ever smoked have been able to quit, and most of those (about 70%) who still smoke want to quit. Here are some of the best ways to stop smoking. Keep Trying: It takes most smokers about 8 tries before they are finally able to fully quit. So, the more often you try and fail, the better your chance of quitting the next time! So, don't give up! Go Cold Tyrone: Most ex-smokers quit cold turkey. Trying to cut back gradually doesn't seem to work as well, perhaps because it continues the smoking habit. Also, it is possible to fool yourself by inhaling more while smoking fewer cigarettes. This results in the same amount of nicotine in your body! Get Support: Support programs can make an important difference, especially for the heavy smoker. These groups offer lectures, methods to change your behavior and peer support. Call the free national Quitline for more information. 903-WOFB-IAP (337-976-6117). Low-cost or free programs are offered by many hospitals, local chapters of the [place] [employer] (145-101-2054) and the [place] [employer] (133-073-3287). Support at home is important too. Non-smokers can help by offering praise and encouragement. If the smoker fails to quit, encourage them to try again! Qhzl-Qgs-Pkaqyfj Medicines: For those who can't quit on their own, Nicotine Replacement Therapy (NRT) may make quitting much easier. Certain aids such as the nicotine patch, gum and lozenge are available without a prescription. However, it is best to use these under the guidance of your doctor. The skin patch provides a steady supply of nicotine to the body. Nicotine gum and lozenge gives temporary bursts of low levels of nicotine. Both methods take the edge off the craving for cigarettes. WARNING: If you feel symptoms of nicotine overdose, such as nausea, vomiting, dizziness, weakness, or fast heartbeat, stop using these and see your doctor. Prescription Medicines: After evaluating your smoking patterns and prior attempts at quitting, your doctor may offer a prescription medicine such as bupropion (Zyban, Wellbutrin), varenicline (Chantix, Champix), a niocotine inhaler or nasal spray. Each has its unique advantage and side effects which your doctor can review with you. Health Benefits Of Quitting: The benefits of quitting start right away and keep improving the longer you go without smokin minutes: blood pressure and pulse return to normal 8 hours: oxygen levels return to normal 2 days: ability to smell and taste begins to improve as damaged nerves start to regrow 2-3 weeks: circulation and lung function improves 1-9 months: decreased cough, congestion and shortness of breath; less tired 1 year: risk of heart attack decreases by half 5 years: risk of lung cancer decreases by half; risk of stroke becomes the same as a non-smoker For information about how to quit smoking, visit the following links: National Cancer [place] , Clearing the Air, Quit Smoking Today - an online booklet. http://www.smokefree.gov/pubs/clearing_the_air.pdf Smokefree.gov http://smokefree.gov/ QuitNet http://www.quitnet.com/ Hydrocodone Bitartrate, Acetaminophen Oral tablet What is this medicine? ACETAMINOPHEN; HYDROCODONE (a set a MICHAEL gilmar fen; shahid droe KOE done) is a pain reliever. It is used to treat mild to moderate pain. How should I use this medicine? Take this medicine by mouth. Swallow it with a full glass of water. Follow the directions on the prescription label. If the medicine upsets your stomach, take the medicine with food or milk. Do not take more than you are told to take. Talk to your oncology specialist regarding the use of this medicine in children. This medicine is not approved for use in children. What side effects may I notice from receiving this medicine? Side effects that you should report to your doctor or health respiratory care program director as soon as possible: allergic reactions like skin rash, itching or hives, swelling of the face, lips, or tongue breathing problems confusion feeling faint or lightheaded, falls stomach pain yellowing of the eyes or skin Side effects that usually do not require medical attention (report to your doctor or health respiratory care program director if they continue or are bothersome): nausea, vomiting stomach upset What may interact with this medicine? alcohol antihistamines isoniazid medicines for depression, anxiety, or psychotic disturbances medicines for sleep muscle relaxants naltrexone narcotic medicines (opiates) for pain phenobarbital ritonavir tramadol What if I miss a dose? If you miss a dose, take it as soon as you can. If it is almost time for your next dose, take only that dose. Do not take double or extra doses. Where should I keep my medicine? Keep out of the reach of children. This medicine can be abused. Keep your medicine in a safe place to protect it from theft. Do not share this medicine with anyone. Selling or giving away this medicine is dangerous and against the law. Store at room temperature between 15 and 30 degrees C (59 and 86 degrees F). Protect from light. Keep container tightly closed. Throw away any unused medicine after the expiration date. Discard unused medicine and used packaging carefully. Pets and children can be harmed if they find used or lost packages. What should I tell my health care provider before I take this medicine? They need to know if you have any of these conditions: brain tumor Crohn's disease, inflammatory bowel disease, or ulcerative colitis drink more than 3 alcohol-containing drinks per day drug abuse or addiction head injury heart or circulation problems kidney disease or problems going to the bathroom liver disease lung disease, asthma, or breathing problems an unusual or allergic reaction to acetaminophen, hydrocodone, other opioid analgesics, other medicines, foods, dyes, or preservatives or trying to get breast-feeding What should I watch for while using this medicine? Tell your doctor or health respiratory care program director if your pain does not go away, if it gets worse, or if you have new or a different type of pain. You may develop tolerance to the medicine. Tolerance means that you will need a higher dose of the medicine for pain relief. Tolerance is normal and is expected if you take the medicine for a long time. Do not suddenly stop taking your medicine because you may develop a severe reaction. Your body becomes used to the medicine. This does NOT mean you are addicted. Addiction is a behavior related to getting and using a drug for a non-medical reason. If you have pain, you have a medical reason to take pain medicine. Your doctor will tell you how much medicine to take. If your doctor wants you to stop the medicine, the dose will be slowly lowered over time to avoid any side effects. You may get drowsy or dizzy when you first start taking the medicine or change doses. Do not drive, use machinery, or do anything that may be dangerous until you know how the medicine affects you. Stand or sit up slowly. There are different types of narcotic medicines (opiates) for pain. If you take more than one type at the same time, you may have more side effects. Give your health care provider a list of all medicines you use. Your doctor will tell you how much medicine to take. Do not take more medicine than directed. Call emergency for help if you have problems breathing. The medicine will cause constipation. Try to have a bowel movement at least every 2 to 3 days. If you do not have a bowel movement for 3 days, call your doctor or health respiratory care program director. Too much acetaminophen can be very dangerous. Do not take Tylenol (acetaminophen) or medicines that contain acetaminophen with this medicine. Many non-prescription medicines contain acetaminophen. Always read the labels carefully. Omeprazole Magnesium Gastro-resistant tablet What is this medicine? OMEPRAZOLE (oh ME pray zol) prevents the production of acid in the stomach. It is used to treat the symptoms of heartburn. You can buy this medicine without a prescription. This product is not for long-term use, unless otherwise directed by your doctor or health respiratory care program director. How should I use this medicine? Take this medicine by mouth. Follow the directions on the product label. If you are taking this medicine without a prescription, take one tablet every day. Do not use for longer than 14 days or repeat a course of treatment more often than every 4 months unless directed by a doctor or healthcare professional. Take your dose at regular intervals every 24 hours. Swallow the tablet whole with a drink of water. Do not crush, break or chew. This medicine works best if taken on an empty stomach 30 minutes before breakfast. If you are using this medicine with the prescription of your doctor or healthcare professional, follow the directions you were given. Do not take your medicine more often than directed. Talk to your oncology specialist regarding the use of this medicine in children. Special care may be needed. What side effects may I notice from receiving this medicine? Side effects that you should report to your doctor or health respiratory care program director as soon as possible: allergic reactions like skin rash, itching or hives, swelling of the face, lips, or tongue bone, muscle or joint pain breathing problems chest pain or chest tightness dark yellow or brown urine diarrhea dizziness fast, irregular heartbeat feeling faint or lightheaded fever or sore throat muscle spasm palpitations redness, blistering, peeling or loosening of the skin, including inside the mouth seizures tremors unusual bleeding or bruising unusually weak or tired yellowing of the eyes or skin Side effects that usually do not require medical attention (Report these to your doctor or health respiratory care program director if they continue or are bothersome.): constipation dry mouth headache loose stools nausea What may interact with this medicine? Do not take this medicine with any of the following medications: atazanavir clopidogrel nelfinavir This medicine may also interact with the following medications: ampicillin certain medicines for anxiety or sleep certain medicines that treat or prevent blood clots like warfarin cyclosporine diazepam digoxin disulfiram iron salts phenytoin prescription medicine for fungal or yeast infection like itraconazole, ketoconazole, voriconazole saquinavir tacrolimus What if I miss a dose? If you miss a dose, take it as soon as you can. If it is almost time for your next dose, take only that dose. Do not take double or extra doses. Where should I keep my medicine? Keep out of the reach of children. Store at room temperature between 20 and 25 degrees C (68 and 77 degrees F). Protect from light and moisture. Throw away any unused medicine after the expiration date. What should I tell my health care provider before I take this medicine? They need to know if you have any of these conditions: black or bloody stools chest pain difficulty swallowing have had heartburn for over 3 months have heartburn with dizziness, lightheadedness or sweating liver disease stomach pain unexplained weight loss vomiting with blood wheezing an unusual or allergic reaction to omeprazole, other medicines, foods, dyes, or preservatives or trying to get breast-feeding What should I watch for while using this medicine? It can take several days before your heartburn gets better. Check with your doctor or health respiratory care program director if your condition does not start to get better, or if it gets worse. Do not treat diarrhea with over the counter products. Contact your doctor if you have diarrhea that lasts more than 2 days or if it is severe and watery. Do not treat yourself for heartburn with this medicine for more than 14 days in a row. You should only use this medicine for a 2-week treatment period once every 4 months. If your symptoms return shortly after your therapy is complete, or within the 4 month time frame, call your doctor or health respiratory care program director. Promethazine Hydrochloride Rectal suppository What is this medicine? PROMETHAZINE (proe METH a zeen) is an antihistamine. It is used to treat allergic reactions and to treat or prevent nausea and vomiting from illness or motion sickness. It is also used to make you sleep before surgery, and to help treat pain or nausea after surgery. How should I use this medicine? This medicine is for rectal use only. Do not take by mouth. Wash your hands before and after use. Take off the foil wrapping. Wet the tip of the suppository with cold tap water to make it easier to use. Lie on your side with your lower leg straightened out and your upper leg bent forward toward your stomach. Lift upper buttock to expose the rectal area. Apply gentle pressure to insert the suppository completely into the rectum, pointed end first. Hold buttocks together for a few seconds. Remain lying down for about 15 minutes to avoid having the suppository come out. Do not use more often than directed. Talk to your oncology specialist regarding the use of this medicine in children. Special care may be needed. This medicine should not be given to infants and children younger than 2 years old. What side effects may I notice from receiving this medicine? Side effects that you should report to your doctor or health respiratory care program director as soon as possible: blurred vision irregular heartbeat, palpitations or chest pain muscle or facial twitches pain or difficulty passing urine seizures skin rash slowed or shallow breathing unusual bleeding or bruising yellowing of the eyes or skin Side effects that usually do not require medical attention (report to your doctor or health respiratory care program director if they continue or are bothersome): headache nightmares, agitation, nervousness, excitability, not able to sleep (these are more likely in children) stuffy nose What may interact with this medicine? Do not take this medicine with any of the following medications: medicines called MAO Inhibitors like Nardil, Parnate, Marplan, Eldepryl other phenothiazines like trimethobenzamide This medicine may also interact with the following medications: barbiturates such as phenobarbital bromocriptine certain antidepressants certain antihistamines used in allergy or cold medicines epinephrine levodopa medicines for sleep medicines for mental problems and psychotic disturbances medicines for movement abnormalities as in Parkinson's disease, or for gastrointestinal problems muscle relaxants prescription pain medicines What if I miss a dose? If you miss a dose, use it as soon as you can. If it is almost time for your next dose, use only that dose. Do not use double doses. Where should I keep my medicine? Keep out of the reach of children. Store in a refrigerator between 2 and 8 degrees C (36 and 46 degrees F). Throw away any unused medicine after the expiration date. What should I tell my health care provider before I take this medicine? They need to know if you have any of these conditions: glaucoma high blood pressure or heart disease kidney disease liver disease lung or breathing disease, like asthma prostate trouble pain or difficulty passing urine seizures an unusual or allergic reaction to promethazine or phenothiazines, other medicines, foods, dyes, or preservatives or trying to get breast-feeding What should I watch for while using this medicine? Tell your doctor or health respiratory care program director if your symptoms do not start to get better in 1 to 2 days. You may get drowsy or dizzy. Do not drive, use machinery, or do anything that needs mental alertness until you know how this medicine affects you. To reduce the risk of dizzy or fainting spells, do not stand or sit up quickly, especially if you are an older patient. Alcohol may increase dizziness and drowsiness. Avoid alcoholic drinks. Your mouth may get dry. Chewing sugarless gum or sucking hard candy, and drinking plenty of water may help. Contact your doctor if the problem does not go away or is severe. This medicine may cause dry eyes and blurred vision. If you wear contact lenses you may feel some discomfort. Lubricating drops may help. See your eye doctor if the problem does not go away or is severe. This medicine can make you more sensitive to the sun. Keep out of the sun. If you cannot avoid being in the sun, wear protective clothing and use sunscreen. Do not use sun lamps or tanning beds/booths. If you are diabetic, check your blood-sugar levels regularly. You have been given the following additional information: Abdominal Pain, Unknown Cause, (Male) Constipation (Adult) Rectal Bleed, Stable Marijuana Abuse Hernia (Inguinal, Ventral, Umbilical) Diet, Russell (Adult) Smoking Cessation Hydrocodone Bitartrate, Acetaminophen Oral tablet Omeprazole Magnesium Gastro-resistant tablet Promethazine Hydrochloride Rectal suppository Rest. Do not work for two days. (Electronically signed by Korey White DO 08/02/2016 6:27)
--- NOTE | 2016-08-02 06:28 | ED MAR SUMMARY ---
..... Medication Administration Record [facility] [address] [place] [address] Patient: OLGA MALDONADO Visit ID: [id number] 36y, M Weight: 104.3 kg Height/Length: 73 in BMI: 30.3 ALLERGIES: No Known Drug Allergy Start 04:54 08/02/2016 Radha Barillas R.N., Stop 06:25 08/02/2016 Radha Barillas R.N. Medication Administered: IV NS (SALINE), Dose: IV Fluids, Rate: 1000 mL/hr, Dispensed: 1000 mL bag, Site: #1 right forearm. Medication Ordered: IV NS : initial bolus 1000 mL (1000 mL/hr), then 250 mL/hr for X4 (NOW). Given 04:56 08/02/2016 Radha Barillas R.N. Medication Administered: ZOFRAN [IVP] (ONDANSETRON HCL), Dose: 4 mg IVP over 30 second(s), Site: #1 right forearm. Medication Ordered: Zofran IV 4 mg (NOW). Given 05:01 08/02/2016 Radha Barillas R.N. Medication Administered: DILAUDID [IVP] (HYDROMORPHONE HCL PF), Dose: 1 mg IVP over 1 minute(s), Site: #1 right forearm. Medication Ordered: Dilaudid IV 1 mg (NOW). Given 05:02 08/02/2016 Radha Barillas R.N. Medication Administered: PROTONIX [IVP] (PANTOPRAZOLE SODIUM), Dose: 40 mg IVP over 2 minute(s), Site: #1 right forearm. Medication Ordered: Protonix IVP 40mg 40 mg (Mix in NS 10ml over 2min).
--- NOTE | 2016-08-02 06:28 | ED MED RECONCILIATION SUMMARY ---
Patient: OLGA MALDONADO Medication Reconciliation Report [facility] VisitID: [id number] [place] [address] 36y, M Registration Date/Time: 08/02/2016 Weight: 104.3 kg Height/Length: 73 in. BMI: 30.3 ALLERGIES: No Known Drug Allergy The patient's Home Medications are listed below: NONE. The source(s) of the original Home Medication information: Not obtained. The following Medications were given to the patient in the Emergency Department: IV NS IV Fluids bolus 0, then 1000 mL/hr, administered: 08/02/2016 4:54:00 AM Zofran [IVP] IVP 4 mg, administered: 08/02/2016 4:56:00 AM Dilaudid [IVP] IVP 1 mg, administered: 08/02/2016 5:01:00 AM PROTONIX [IVP] IVP 40 mg, administered: 08/02/2016 5:02:00 AM The following Medications were prescribed to the patient: Take acetaminophen (Tylenol, Datril, etc.) according to label instructions. Available over the counter. -- Korey White DO Hydrocodone/APAP 5mg / 325mg: take 1-2 orally every 8 hours as needed for pain. Dispense ten (10). No refill. -- Korey White DO Prilosec 20 mg capsules: Take 1 capsule orally once daily. Dispense fifteen (15). No refills. Substitution is permissible. -- Korey White DO Phenergan suppositories 25 mg: Insert 1 rectally every 4 to 6 hours as needed for nausea or vomiting. Dispense ten (10). No refills. Substitution is permissible. -- Korey White DO
--- NOTE | 2016-08-02 07:22 | DIAGNOSTIC IMAGING REPORT ---
PROCEDURE: CT ABD/PELVIS WITH CONTRAST CLINICAL INDICATION: Epigastric, initial encounter TECHNIQUE: 145 ml of Isovue 300 were injected intravenously and axial images were obtained of the entire abdomen and pelvis with sagittal and coronal reformations. COMPARISON: None. FINDINGS: ABDOMEN: Lung base are clear. Heart size is normal. Mild hepatomegaly (21 cm). Gallbladder pancreas, spleen (splenule), adrenal glands, kidneys and abdominal aorta are normal. Nonspecific bowel gas pattern. PELVIS: Normal appendix. No pelvic mass, inflammatory changes or free fluid. Bones are unremarkable. IMPRESSION: 1. Mild hepatomegaly 2. Preliminary results submitted by Dr. Ramirez, [facility] radiology. All CT scans at this facility use dose modulation, iterative reconstruction, and/or weight-based dosing when appropriate to reduce radiation dose to as low as reasonably achievable.
== END 2016-08-02 06:23 | disposition home or self-care (01) ==
LOC: ED SRH 04:38
DX: K42.9 Umbilical hernia without obstruction or gangrene (principal); K92.2 Gastrointestinal hemorrhage, unspecified; K92.1 Melena; F12.180 Cannabis abuse with cannabis-induced anxiety disorder; R10.13 Epigastric pain; R10.33 Periumbilical pain; R10.84 Generalized abdominal pain; R10.12 Left upper quadrant pain; Z72.0 Tobacco use
CPT/HCPCS: 90004; 90100; 92235; 92530; 92760; 92761; 92762; 92763; 92764; 92765; 92766; 92767; 94060; 95059